=== PATIENT | female | born 1935 | race Caucasian/White ===

== ENCOUNTER 2018-03-05 11:14 | Emergency (ER) | payer MEDICARE ==
[~2018-03-05] VITALS: Ht 160 cm; Wt 64.9 kg
[2018-03-05 11:14] VITALS: BP_SYST 151
[2018-03-05] MEDS ORDERED: ACETAMINOPHEN 500 MG TABLET PO ONE (11:30)
[2018-03-05] MEDS ORDERED: LOSA100T3 PO (11:43)
[2018-03-05] MEDS ORDERED: ATEN50TA PO (11:43)
[2018-03-05] MEDS ORDERED: LIP40 PO (11:43)
[2018-03-05] MEDS ORDERED: AMLO5TAB4 PO (11:43)
[2018-03-05] MEDS ORDERED: VENL75CA PO (11:43)
[2018-03-05] MEDS ORDERED: DILT60TA3 PO (11:43)
[2018-03-05] MEDS ORDERED: LEVO100T9 PO (11:43)
[2018-03-05] MEDS ORDERED: TROS20TA2 PO (11:43)
[2018-03-05] MEDS ORDERED: CYM30 PO (11:43)
[2018-03-05] MEDS ORDERED: FENO160 PO (11:43)
== END 2018-03-05 13:17 | disposition home or self-care (01) ==
LOC: SED 11:14
DX: S39.012A Strain of muscle, fascia and tendon of lower back, initial encounter (principal); E11.9 Type 2 diabetes mellitus without complications; I10 Essential (primary) hypertension; F41.9 Anxiety disorder, unspecified; F32.9 Major depressive disorder, single episode, unspecified; Z90.49 Acquired absence of other specified parts of digestive tract; Z91.013 Allergy to seafood; Z79.899 Other long term (current) drug therapy; W01.0XXA Fall on same level from slipping, tripping and stumbling without subsequent striking against object, initial encounter; Y93.89 Activity, other specified; Y92.009 Unspecified place in unspecified non-institutional (private) residence as the place of occurrence of the external cause; Y99.8 Other external cause status
CPT/HCPCS: 72110; 72220-TC; 99284